=== PATIENT | female | born 1995 | race African-American/Black ===

== ENCOUNTER 2017-09-17 18:31 | Emergency (ER) | payer BC ==
[~2017-09-17] VITALS: Ht 152.4 cm; Wt 63.5 kg
[2017-09-17 18:45] VITALS: BP 137/83
[2017-09-17] MEDS ORDERED: DICY20TA3 PO (19:13)
[2017-09-17] MEDS ORDERED: DIPH1TAB PO (19:13)
[2017-09-17] MEDS ORDERED: ONDA4TAB10 SL (19:13)
--- NOTE | 2017-09-17 19:13 | PHYS DOC ---
Past Medical History Past Medical History: Other Additional Past Medical Histor: low iron Past Surgical History: Other Additional Past Surgical Histo: HERNIA REPAIR Alcohol Use: None Drug Use: None Adult General Chief Complaint Chief Complaint: NAUSEA/VOMITING/DIARRHA HPI HPI Patient is a 22 year old female with no significant medical history who presents today complaining of intermittent episodes of nausea vomiting and diarrhea since Thanksgiving approximately 2 weeks ago. Patient states she had a fever couple days ago though she states that the thermometer at home could be broken. Patient denies any hematemesis or melena. She states the last time she vomited was 3 days ago. Review of Systems Review of Systems Constitutional: Denies fever or chills [] Eyes: Denies change in visual acuity, redness, or eye pain [] HENT: Denies nasal congestion or sore throat [] Respiratory: Denies cough or shortness of breath [] Cardiovascular: No additional information not addressed in HPI [] GI: Reports nausea vomiting and diarrhea. Denies abdominal pain, : Denies dysuria or hematuria [] Musculoskeletal: Denies back pain or joint pain [] Integument: Denies rash or skin lesions [] Neurologic: Denies headache, focal weakness or sensory changes [] All other systems were reviewed and found to be within normal limits, except as documented in this note. Current Medications Current Medications Current Medications Medications (Trade) Dose Ordered Sig/Pelon Start Time Stop Time Status Last Admin Dose Admin Dicyclomine HCl (Bentyl) 20 mg 1X ONCE 09/17/17 19:15 09/17/17 19:16 DC 09/17/17 19:46 20 MG Ondansetron HCl (Zofran Odt) 4 mg 1X ONCE 09/17/17 19:15 09/17/17 19:16 DC 09/17/17 19:46 4 MG Allergies Allergies Allergies Coded Allergies Type Severity Reaction Last Updated Verified No Known Drug Allergies 09/04/15 No Physical Exam Physical Exam Constitutional: Well developed, well nourished, no acute distress, non-toxic appearance. [] HENT: Normocephalic, atraumatic, bilateral external ears normal, oropharynx moist, no oral exudates, nose normal. [] Eyes: PERRLA, EOMI, conjunctiva normal, no discharge. [] Neck: Normal range of motion, no tenderness, supple, no stridor. [] Cardiovascular:Heart rate regular rhythm, no murmur [] Lungs & Thorax: Bilateral breath sounds clear to auscultation [] Abdomen: Bowel sounds normal, soft, no tenderness, no masses, no pulsatile masses. [] Skin: Warm, dry, no erythema, no rash. [] Back: No tenderness, no CVA tenderness. [] Extremities: No tenderness, no cyanosis, no clubbing, ROM intact, no edema. [] Neurologic: Alert and oriented X 3, normal motor function, normal sensory function, no focal deficits noted. [] Psychologic: Affect normal, judgement normal, mood normal. [] Current Patient Data Vital Signs Vital Signs Date Time Temp Pulse Resp B/P (MAP) Pulse Ox O2 Delivery O2 Flow Rate FiO2 09/17/17 18:45 98.0 69 16 137/83 (101) 99 Room Air 98.0 Lab Values Laboratory Tests Test 09/17/17 19:05 09/17/17 19:07 POC Urine HCG, Qualitative Hcg negative (Negative) Urine Collection Type Unknown Urine Color Yellow Urine Clarity Clear Urine pH 7.0 Urine Specific [place] 1.025 Urine Protein Negative mg/dL (NEG-TRACE) Urine Glucose (UA) Negative mg/dL (NEG) Urine Ketones (Stick) Negative mg/dL (NEG) Urine Blood Negative (NEG) Urine Nitrite Negative (NEG) Urine Bilirubin Negative (NEG) Urine Urobilinogen Dipstick 1.0 mg/dL (0.2 mg/dL) Urine Leukocyte Esterase Negative (NEG) Urine RBC 0 /HPF (0-2) Urine WBC Rare /HPF (0-4) Urine Squamous Epithelial Cells Mod /LPF Urine Bacteria Few /HPF (0-FEW) Urine Mucus Marked /LPF EKG EKG [] Radiology/Procedures Radiology/Procedures [] Course & Med Decision Making Course & Med Decision Making Pertinent Labs and Imaging studies reviewed. (See chart for details) Patient is in the ED with symptoms of viral illness including nausea vomiting and diarrhea. Symptoms are likely viral. Discharged with dicyclomine and Zofran. Instructed to maintain good hand hygiene. Given a prescription for Lomotil. Instructed to push fluids and follow-up with the PCP in 1-2 weeks. Dragon Disclaimer Dragon Disclaimer This electronic medical record was generated, in whole or in part, using a voice recognition dictation system. Departure Departure Impression: Primary Impression: Nausea and vomiting Additional Impression: Diarrhea Disposition: 01 HOME, SELF-CARE Condition: STABLE Referrals: NO PCP (PCP) follow up with your doctor in one week ALETHA SORIANO MD follow up with your doctor in one week Patient Instructions: Diarrhea, [id number], Nausea and Vomiting Additional Instructions: You were seen with nausea vomiting and diarrhea. This are likely viral symptoms. Push fluids. Maintain good hand hygiene. Take the prescribed medicines as ordered. Your urine has no infection. Follow-up with your doctor in 1-2 weeks. Scripts Diphenoxylate Hcl/Atropine (LOMOTIL TABLET) 1 Each Tablet 1 TAB PO TID Y for DIARRHEA MDD 3 tablets in 24 hours, #30 TAB Prov: ZACH MILLER APRN 09/17/17 Dicyclomine Hcl (DICYCLOMINE HCL) 20 Mg Tablet 1 TAB PO TID, #30 TAB 0 Refills Prov: ZACH MILLER APRN 09/17/17 Ondansetron (ZOFRAN ODT) 4 Mg Tab.rapdis 1 TAB SL Q8HRS, #15 TAB Prov: ZACH MILLER APRN 09/17/17 Problem Qualifiers Primary Impression: Nausea and vomiting Vomiting type: unspecified Vomiting Intractability: non-intractable Qualified Codes: R11.2 - Nausea with vomiting, unspecified Additional Impression: Diarrhea Diarrhea type: unspecified type Qualified Codes: R19.7 - Diarrhea, unspecified ZACH MILLER APRN Sep 17, 2017 19:13
[2017-09-17] MEDS ORDERED: DICYCLOMINE HCL 10 MG CAPSULE PO ONE (19:15)
[2017-09-17] MEDS ORDERED: ONDANSETRON ODT 4 MG TAB.RAPDIS. PO ONE (19:15)
[2017-09-17 19:27] LABS: BILIRUBIN,URINE NEGATIVE (NEG); GLUCOSE,URINE NEGATIVE (NEG); NITRITE,URINE NEGATIVE (NEG); PROTEIN,URINE NEGATIVE (NEG-TRACE)
[2017-09-17 19:44] LABS: BACTERIA,URINE FEW /HPF (0-FEW); RBC,URINE 0 /HPF (0-2); SQUAMOUS EPITHELIAL CELL,UR MOD /LPF; WBC,URINE RARE /HPF (0-4)
== END 2017-09-17 20:05 | disposition home or self-care (01) ==
LOC: ER 18:31
DX: R11.2 Nausea with vomiting, unspecified (principal); R19.7 Diarrhea, unspecified; R50.9 Fever, unspecified
CPT/HCPCS: 81001; 81025; 99283; Q0162